=== PATIENT | male | born 1975 | race Caucasian/White ===

== ENCOUNTER 2022-06-08 15:37 | Emergency (ER) | payer BC, OTHER, SELFPAY ==
--- NOTE | 2022-06-08 15:40 | ED.URI ---
HPI - URI/Sore Throat General Chief Complaint: Upper Respiratory Infection Stated Complaint: sorethroat Time Seen by Provider: 06/08/22 15:40 Source: patient Mode of arrival: ambulatory Limitations: no limitations History of Present Illness HPI Narrative: Heber is a 46-year-old male patient presenting to the clinic today with complaints of a sore throat x3 days. He reports no fever or chills. Denies any runny nose, congestion, or headache. No known exposure to anybody with strep MD elicited complaint: sore throat and nasal congestion Related Data Allergies Allergy/AdvReac Type Severity Reaction Status Date / Time No Known Allergies Allergy Verified 06/08/22 16:01 Review of Systems Review of Systems: Pertinent positives per HPI. Patient denies any fever, chills, rash, headache, visual changes, dizziness, cough, shortness of breath, chest pain, palpitations, nausea, vomiting, diarrhea, constipation, abdominal pain, or any urinary issues. 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 There is no relevant family history pertinent to the patient complaint. Exam Narrative: General: Well-developed, well nourished, in no apparent distress Head: Normocephalic, atraumatic Eyes: Pupils equally round and reactive to light bilaterally, EOM intact, sclera and conjunctive clear, no discharge, lids normal Ears: TMs intact and clear, ear canals clear, no drainage, grossly hearing normal. Nose: Nares patent, no discharge, no inflammation, no sinus tenderness. Mouth: Oral pharynx without lesions or masses, good dentition, MMM. Oropharynx red with bilateral tonsillar enlargement Neck: Supple, trachea midline, enlargement of anterior cervical nodes, no thyroid masses or goiter palpable. Cardio: Regular rate and rhythm, s1 and s2 normal, no murmur appreciated. Resp: Clear to auscultation bilaterally, no rhonchi, rales, wheezing or rubs Course Course Emergency Course: Portions of this record may have been created with voice recognition software. Level of Care: Express Care Visit Vital Signs Vital signs: Vital Signs Temperature 36.2 C L 06/08/22 15:48 Pulse Rate 110 H 06/08/22 15:48 Respiratory Rate 18 06/08/22 15:48 Blood Pressure 140/84 06/08/22 15:48 Pulse Oximetry 98 06/08/22 15:48 Oxygen Delivery Room Air 06/08/22 15:48 Temperature 36.2 C L 06/08/22 15:48 Pulse Rate 110 H 06/08/22 15:48 Respiratory Rate 18 06/08/22 15:48 Blood Pressure 140/84 06/08/22 15:48 Pulse Oximetry 98 06/08/22 15:48 Oxygen Delivery Room Air 06/08/22 15:48 Vital signs reviewed MDM - URI/Sore Throat MDM Narrative Medical decision making narrative: At the time of visit patient is resting comfortably on the exam table. Strep screen was obtained and was negative in the clinic today. I suspect the patient has viral pharyngitis/right eustachian tube dysfunction. Prescription for prednisone was sent to
[2022-06-08 15:48] VITALS: BP 140/84; PULSE 110; RESP 18; TEMP 36.2; O2SAT 98
== END 2022-06-08 16:03 | disposition home or self-care (01) ==
LOC: EXPTROY 15:42
PROVIDERS: Emergency Provider Nurse Practitioner Family; PCP Family Medicine
DX: H69.91 Unspecified Eustachian tube disorder, right ear (principal); J02.9 Acute pharyngitis, unspecified; F17.200 Nicotine dependence, unspecified, uncomplicated; F12.90 Cannabis use, unspecified, uncomplicated
CPT/HCPCS: 87081; 87880; 99213; G0463

== ENCOUNTER 2022-07-17 12:30 | Outpatient (RCR) | payer BC, OTHER, SELFPAY ==
--- NOTE | 2022-06-13 16:30 | PTOPEVAL1 ---
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 Viola a pop walking was effected for a couple weeks. A few weeks later, was kicking ball around and did something like a mistep felt right knee slipping . Was initially sore, but had multiple other instances where knee would lock and he had ot manually manipulate knee to get to unlock. Each time was when was in bed and turnign from right sidelying to left sidelying Reported Pain Level Pain Score 0: Self Report Assessment PT Clinical Summary Pt presents with diagnosis of right knee pain. Pt reports will have painful times and knee will lock and be painful but is most concerned about the instability of his knee. Evalutaion demos significant ligament laxity medial collateral and lateral collateral ligaments with possible ACL tear or at least significant laxity when compared to left knee. Pt also demo's overall bilat LE instability with single leg balance testing. Thus patient will benefit from physical therapy in order to improve stability through neuromuscular reeducation, alignment, muscle activation patterns , and therapist assist in equipping with the appropriate durable medical equipment to support improvement and high level activities. Plan of Care Interventions Check Out for Orthotic/Pr,Electrical Stimulation, Hot Pack/Cold Pack,Manual Therapy,Neuro Re- education,Patient/Caregiver Educati,Therapeutic Activities,Therapeutic Exercise,Self-Care/Home Management,Ultrasound,Other Other Interventions Taping and bracing PT Services Indicated Yes Treatment Frequency and 1-2x weekly for 8 visits Duration These treatments will address the objective and functional deficits as defined above. The patient will be advanced safely and appropriately in order for the patient to progress towards his/her prior level of function. Additional exercises will be introduced and as well as a comprehensive home exercise program upon discharge, if needed, ?to ensure carryover of functional gains achieved in the clinic. This treatment plan has been reviewed and agreement upon by the patient.
--- NOTE | 2022-07-17 17:05 | PTOPDC ---
Assessment and note entered by Kathy Maddox, PT Assessment Status Discharge Diagnosis right knee pain Onset December 2021 Subjective Information Self-report of 50% improvement Pt reports feeling more confident, feels that is having less locking instances. Reported Pain Level Pain Score 0: Self Report Additional Pain Score Comments Pt is going on a high level hiking trip in December and worries about being able to accomplish this. Is more confident in being able to do this but isn't 100% in confident in this Also reports has not had to use hands to manipulate knee back into place with locking episodes. Assessment PT Clinical Summary Pt reports feeling 50% improved overall with less episodes of knee locking and episodes are less intense as well. Pt reports feeling more confident in abilities but not as confident as he would like being he is a highly active and young individual (appropriate activities for age and health). However being patient has only made 50% improvement, ligament laxity not tested as inert structure integrity will remain unchanged in such a short period, and pt has fully normalized strength in isolated testing, pt would like to further explore options related to knee laxity with orthopeadic consultation and possible imaging (which is appropriate at this time). Thus pt is being discharged from plan of care.
== END 2022-07-22 11:29 | disposition home or self-care (01) ==
LOC: ANHHIPT 12:30
PROVIDERS: PCP Family Medicine; Visit Provider Nurse Practitioner Family
DX: M25.561 Pain in right knee (principal)
CPT/HCPCS: 97110; 97112; 97116; 97161

== ENCOUNTER → 2022-10-23 10:52 | Outpatient (CLI) | payer BC, OTHER, SELFPAY ==
--- NOTE | ~2022-10-23 | MR_ITS ---
EXAMINATION: MR knee RT wo con DATE: 10/23/2022 11:41 INDICATION: Right knee pain and instability TECHNIQUE: Magnetic resonance imaging (MRI) of the affected knee was performed without intravenous co ntrast. Sequences included coronal PD-weighted FSE, coronal PD-weighted FS FSE, coronal fluid sensit rc FSE STIR, sagittal T2-weighted FSE, sagittal PD-weighted FS FSE, sagittal fluid sensitive FSE STI R, axial fluid sensitive FSE STIR and axial PD weighted fat saturated FSE. COMPARISON: None. FINDINGS: Medial compartment: The posterior horn of the medial meniscus is small in the medial meniscal body diminutive likely refl ecting changes of prior partial meniscectomy. Increased signal contacting the irregular margins of th e remaining tissue at the mid to lateral aspect of the posterior horn consistent with residual/recurr ent tearing. Cortical irregularity, mild underlying edema-like signal change at the site of a small d eep chondral ulceration at the central weightbearing medial femoral condyle. Small focus of mild suba rticular edema-like signal change at the medial side of the medial tibial plateau but without evident overlying chondral ulceration or fissuring suggesting this may be related to stress reaction from al tered weight distribution resulting from the partial meniscectomy. Lateral compartment: Longitudinal horizontal tear at the anterior horn of the lateral meniscus. Articular cartilage is nor mal. Patellofemoral compartment: Articular cartilage is normal. Ligaments and tendons: Intact appearing anterior cruciate ligament reconstruction likely from a patellar tendon autograft wi th chronic appearing harvest sites at the inferior pole of the patella and anterior tibial tuberosity either side of a sagittally oriented harvest site along the patellar tendon. The posterior cruciate ligament is normal. The medial collateral ligament and fibular collateral ligament complex are normal . Small enthesophytes and mild tendinopathy at the patellar insertion of the distal quadriceps tendon . The visualized medial and lateral hamstring tendons as well as the iliotibial band are normal. Fluid: Physiologic amount of fluid in the joint space. No loose osteochondral bodies identified. Osseous/other: Bone alignment is normal. No fracture or pathologic marrow replacing process. IMPRESSION: 1. Intact appearing anterior cruciate ligament reconstruction utilizing patellar tendon autograft. 2. Change of likely partial medial meniscectomy with residual/recurrent tearing along the margins of the remaining tissue at the lateral side of the posterior horn. 3. Longitudinal horizontal tear at the anterior horn of the lateral meniscus. 4. 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 Reviewed, dictated and finalized at location B. IMPRESSION: 1. Intact appearing anterior cruciate ligament reconstruction utilizing patella r tendon autograft. 2. Change of likely partial medial meniscectomy with residual/recurrent tearing along the margins of the remaining tissue at the lateral side of the posterior horn. 3. Longitudinal horizontal tear at the anterior horn of the lateral meniscus. 4. 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
== END ==
PROVIDERS: PCP Nurse Practitioner Family; Visit Provider Nurse Practitioner Family
DX: M23.51 Chronic instability of knee, right knee (principal); M25.561 Pain in right knee; S83.281A Other tear of lateral meniscus, current injury, right knee, initial encounter; M17.11 Unilateral primary osteoarthritis, right knee; M94.261 Chondromalacia, right knee
CPT/HCPCS: 73721

== ENCOUNTER 2023-03-10 11:00 | Outpatient (RCR) | payer BC, OTHER, SELFPAY ==
--- NOTE | 2022-12-25 17:38 | PTOPEVAL1 ---
Assessment and note entered by Kathy Maddox, PT Evaluation Information Assessment Status Evaluation Diagnosis ACL reconstruction Therapy Conditions weakness, gait abnormality, pain in right knee Onset 12/20/22 Subjective Information Does get sore when is up on it. But has had minimal pain overall. Currently on Meloxicam till around 12/29 or 12/30. Reported Pain Level Pain Score 2: Self Report Additional Pain Score Comments Hasn't needed to take the Percocet that has bee prescribed for home. Assessment PT Clinical Summary Pt presents 5 days post ACL revision of RLE with autograft vis quads tendon. Pt demos decreased ROM , gait abnormality, decreased functional strength RLE, swelling RLE and pain in RLE. Presentation appropriate for current phase of healing after surgical intervention. Pt was educated on multiple aspects of ACL plan of care today as documented above. 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 Plan of Care Interventions Check Out for Orthotic/Pr,Electrical Stimulation, Gait Training,Hot Pack/Cold Pack,Manual Therapy, Neuro Re-education,Patient/Caregiver Educati, Prosthetic Training,Therapeutic Activities, Therapeutic Exercise,Self-Care/Home Management PT Services Indicated Yes Treatment Frequency and 2x weekly x 12 weeks Duration These treatments will address the objective and functional deficits as defined above. The patient will be advanced safely and appropriately in order for the patient to progress towards his/her prior level of function. Additional exercises will be introduced and as well as a comprehensive home exercise program upon discharge, if needed, ?to ensure carryover of functional gains achieved in the clinic. This treatment plan has been reviewed and agreement upon by the patient.
--- NOTE | 2022-12-25 17:39 | OPREHPOC ---
Outpatient Therapy Plan of Care This is a Multidisciplinary Plan of Care that may contain components documented by all disciplines (PT, OT, and ST.) PT Problem 1 PT Problem #1 Knowledge Deficit PT Goal 1 Goal Pt will be independent in HEP Target Visit 24 PT Goal 2 Goal Pt will verbalize understanding of diagnosis and prognosis Target Visit 12 PT Problem 2 PT Problem #2 Impaired Range of Motion PT Goal 1 Goal Pt will demo 0-120 degrees passive ROM right knee Target Visit 12 PT Goal 2 Goal Pt will demo 0-120 degrees active ROM rigth knee Target Visit 24 PT Problem 3 PT Problem #3 Impaired Gait PT Goal 1 Goal Pt will demo ability to ambulate with knee brace only community distances Target Visit 12 PT Goal 2 Goal Pt will demo normalized gait pattern with or without kene brace as appropriate pending surgical protocol Target Visit 24 PT Problem 4 PT Problem #4 Impaired Strength PT Goal 1 Goal Pt will demo strong quads contraction in 0 degree extension Target Visit 12 PT Goal 2 Goal Pt will demo 5/5 (when resistance testing allowed) . Target Visit 24
--- NOTE | 2023-01-21 15:53 | PTOPPROG ---
Assessment and note entered by Kathy Maddox, PT Assessment Status Progress Diagnosis ACL reconstruction Onset 12/20/22 Subjective Information Pt woke up this morning with increased pain Assessment PT Clinical Summary Pt is progressing well with this therapy. Cont to demo extensor lag however has improve over therapy plan of care. ROM has greatly improved, gait has improved, pain has stayed low with the exception of last night and today in which pain went up to a 5/10 at worst located lateral knee, does not appear joint line related. No signs of infection prsent, mildly decreased scar mobility superior incision and lower incision. Pt will benefit from continued therapy to continue to improve strength, stability, and complete surgical protocol/plan of care to increase function and independence. Plan of Care Interventions Check Out for Orthotic/Pr,Electrical Stimulation, Gait Training,Hot Pack/Cold Pack,Manual Therapy, Neuro Re-education,Patient/Caregiver Educati, Prosthetic Training,Therapeutic Activities, Therapeutic Exercise,Self-Care/Home Management PT Services Indicated Yes Treatment Frequency and 2x weekly x 4 weeks Duration These treatments will address the objective and functional deficits as defined above. The patient will be advanced safely and appropriately in order for the patient to progress towards his/her prior level of function. Additional exercises will be introduced and as well as a comprehensive home exercise program upon discharge, if needed, ?to ensure carryover of functional gains achieved in the clinic. This treatment plan has been reviewed and agreement upon by the patient.
--- NOTE | 2023-03-11 16:29 | PTOPPROG ---
Assessment and note entered by Kathy Maddox, PT Assessment Status Progress Diagnosis ACL reconstruction Onset 12/20/22 Subjective Information Pt reports has done well since was last in therapy . Sometimes has a sharp little pain in the inside of the knee but not all the time. Has not returned to running or soccer related goals Assessment PT Clinical Summary Pt has attended therapy consistently for ACL reconstruction and is currently 11.5 weeks post-op . He returns to ortho next week. Demo's great improvement in mobility, ROM, strength, and functional ambulation. 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 Discussed with patient benefits of continuation of therapy at a reduced frequency pending doctor's approval to return to sport with guidance. Should patient and ortho decide this is appropriate, will continue patient strengthening and functional return to sprot within protocol. Plan of Care Interventions Check Out for Orthotic/Pr,Electrical Stimulation, Gait Training,Hot Pack/Cold Pack,Manual Therapy, Neuro Re-education,Patient/Caregiver Educati, Prosthetic Training,Therapeutic Activities, Therapeutic Exercise,Self-Care/Home Management PT Services Indicated Yes Treatment Frequency and 1x weekly x 8 weeks Duration These treatments will address the objective and functional deficits as defined above. The patient will be advanced safely and appropriately in order for the patient to progress towards his/her prior level of function. Additional exercises will be introduced and as well as a comprehensive home exercise program upon discharge, if needed, ?to ensure carryover of functional gains achieved in the clinic. This treatment plan has been reviewed and agreement upon by the patient.
--- NOTE | 2023-05-30 15:29 | PCPTNOTE ---
Admitting Provider: Attending Provider: Lasha Ho, Patient:Heber Segura Himsel Date of :1975 Patient has not returned for any further treatments since 03/10/2023 for sport specific training. Pt met his functional goals for ADLs and mobility and is happy with his progress. Thus we are discharging him from his current plan of care. Thank you for referring this patient to [facility]. Please review, sign, date and return this discharge summary CONRADO. I have been updated about the patient's current status and I agree with discharge from the above service at this time. Referring Physician Date
== END 2023-03-25 08:51 | disposition still patient (30) ==
LOC: ANHHIPT 11:00
PROVIDERS: PCP Nurse Practitioner Family; Visit Provider Orthopaedic Surgery Sports Medicine
DX: Z48.89 Encounter for other specified surgical aftercare (principal); M25.561 Pain in right knee; M23.51 Chronic instability of knee, right knee
CPT/HCPCS: 97014; 97110; 97112; 97116; 97140; 97161; 97530; 97750; G0283

== ENCOUNTER 2023-12-09 01:26 | Day surgery (SDC) | payer BC, OTHER, SELFPAY ==
[2023-11-19 10:16] VITALS: BMI 36.0
[2023-12-09 06:53] VITALS: BP 141/90; PULSE 87; RESP 18; TEMP 36.1; O2SAT 100
[2023-12-09] MEDS: LACTATED RINGERS 1,000 ML 150 ML IV CONT (07:03)
[2023-12-09 07:04] LABS: Glucose Point of Care 111 mg/dl (65-105)
--- NOTE | 2023-12-09 07:48 | WPDANESEPPF ---
Anes - Initial Pre Proc Eval Procedure: Operation Date: 12/09/23 08:00 Proposed Procedures p Screening Colonoscopy - Zachary Sherman DO Date/Time: 12/09/23 07:48 Surgeon: Zachary Sherman DO Pre Op Diagnosis: Screening for malignant neoplasm of colon Patient Data Age: 48 Gender: M Height: 1.78 m Weight: 110.8 kg Last Vital Signs Temp 97 F L 12/09/23 06:53 Pulse 87 12/09/23 06:53 Resp 18 12/09/23 06:53 BP 141/90 H 12/09/23 06:53 Pulse Ox 100 12/09/23 06:53 O2 Del Method Room Air 12/09/23 06:53 Allergies Allergy/AdvReac Type Severity Reaction Status Date / Time No Known Allergies Allergy Verified 12/09/23 06:50 Home Medications Medication Instructions Recorded Confirmed Type albuterol sulfate 90 mcg/actuation 2 puff inhalation .COMPLEX PRN 01/28/22 12/09/23 Rx aerosol inhaler bronchospasm #25 grams semaglutide 0.25 mg or 0.5 mg (2 0.5 mg (0.736 mL) subcut WEEKLY #3 10/07/23 12/09/23 Rx mg/3 mL) subcutaneous pen injector mL (Ozempic) losartan 100 mg tablet See Rx Instructions .Route 11/10/23 11/19/23 Rx .COMPLEX #30 tabs metformin 500 mg tablet,extended See Rx Instructions .Route 11/10/23 12/09/23 Rx release 24 hr .COMPLEX #60 tabs pravastatin 40 mg tablet See Rx Instructions .Route 11/10/23 12/09/23 Rx .COMPLEX #30 tabs Laboratory Tests 12/09/23 07:01 POC Capillary Glucose 111 H mg/dl (65-105) Patient hx anesthesia problems: none Family hx anesthesia problems: none Results Review: All pre-operative results and documents have been reviewed as part of the pre-operative evaluation. 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 [employer] Gender identity (if verbalized by the patient): Male Spiritual care concerns: No Agree to blood products: Yes Anes - Eval Final PreProcedure Day of Procedure 12/09/23 07:48 Patient weight: obese Heart: regular rate and rhythm Lungs: clear to auscultation Airway: Mallampati scale class II Neurological: alert and oriented Last oral intake: >/= 8 hours ASA classification: III Emergent: no Anesthetic plan: proceed Anesthesia type and monitoring: general GIVS and standard monitoring Results Review: All pre-operative results and documents have been reviewed as part of the pre-operative evaluation. Informed Consent: The patient's anesthetic plan and its attendant risks and benefits were discussed with the patient/family/POA. Questions were solicited and answers provided to the satisfaction of the patient/family/POA.
--- NOTE | 2023-12-09 07:52 | PM.IMHP ---
H&P: HPI History of Present Illness Date/Time: 12/09/23 07:52 Chief Complaint: screening for colorectal cancer Narrative: this is a 48-year-old man who presents for his 1st colonoscopy. He denies any hematochezia or melena. He denies family history of colon cancer. He did have 1 episode of a hemorrhoid about 6 months ago but has never had any other bowel issues. Review of Systems Review of Systems: All systems reviewed & are unremarkable except as noted in HPI and below Constitutional: Constitutional: Denies chills, Denies fever(s), Denies headache(s) and Denies weight loss Eyes: Eyes: Denies change in vision ENT: Denies dizziness, Denies headache(s), Denies neck mass and Denies throat swelling Cardiovascular: Cardiovascular: Denies chest pain, Denies lightheadedness and Denies dyspnea Respiratory: Respiratory: Denies cough, Denies dyspnea and Denies wheezing Gastrointestinal: Gastrointestinal: Denies abdominal pain, Denies change in bowel habits, Denies nausea and Denies vomiting Genitourinary: Genitourinary: Denies hematuria and Denies dysuria Musculoskeletal: Musculoskeletal: Reports as per HPI Integumentary/Breasts: Skin/Breast: Reports as per HPI Neurologic: Denies dizziness and Denies headache(s) Allergic/Immunologic: Allergic/Immunologic: Denies throat swelling and Denies wheezing PMFSH Surgical History Surgical History Oral cyst (2016) S/P ACL reconstruction (1999) Umbilical hernia (2005) Family History Family History Father Alcoholism Cancer Hypertension Intracranial hemorrhage Mother Depression Dementia Sibling Heart disease Other Asthma Social History Social History Smoking status: Never smoker Alcohol intake: current Drinks per week: 3 Alcohol use details: SOCIALLY, BEER/BOURBON Substance use: never Substance use type: does not use Living arrangements: with family Occupation/Education: occupation 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 [employer] Gender identity (if verbalized by the patient): Male Spiritual care concerns: No Agree to blood products: Yes Meds Home Medications and Allergies Home Medications Medication Instructions Recorded Confirmed Type albuterol sulfate 90 mcg/actuation 2 puff inhalation .COMPLEX PRN 01/28/22 12/09/23 Rx aerosol inhaler bronchospasm #25 grams semaglutide 0.25 mg or 0.5 mg (2 0.5 mg (0.736 mL) subcut WEEKLY #3 10/07/23 12/09/23 Rx mg/3 mL) subcutaneous pen injector mL (Ozempic) losartan 100 mg tablet See Rx Instructions .Route 11/10/23 11/19/23 Rx .COMPLEX #30 tabs metformin 500 mg tablet,extended See Rx Instructions .Route 11/10/23 12/09/23 Rx release 24 hr .COMPLEX #60 tabs pravastatin 40 mg tablet See Rx Instructions .Route 11/10/23 12/09/23 Rx .COMPLEX #30 tabs Allergies Allergy/AdvReac Type Severity Reaction Status Date / Time No Known Allergies Allergy Verified 12/09/23 06:50 Vital Signs Vital Signs - 24 hr 12/09/23 06:53 Temperature 36.1 C L Pulse Rate 87 Respiratory Rate 18 Blood Pressure 141/90 H Pulse Oximetry 100 Oxygen Delivery Room Air Exam Const: General: no acute distress and alert Orientation/consciousness: patient oriented x3 HENMT: Head: normocephalic and atraumatic Ears: hearing grossly normal bilaterally Face/Nose/Sinus: Normal nares present Mouth: Yes Normal oral and palatal mucosa present Eyes: Periorbital: periorbital findings normal Sclera: sclerae normal EOM: EOMs intact bilaterally Neck: Neck: normal visual inspection, no lymphadenopathy and trachea midline Chest: Chest palpation & inspection: normal inspection of the chest Resp: Effort & Inspection: normal respiratory effort Auscultation: clear to auscultation b
[2023-12-09 08:30] VITALS: BP 120/74; PULSE 74; RESP 16; O2SAT 97
[2023-12-09 08:40] VITALS: BP 112/78; PULSE 77; RESP 16; O2SAT 98
[2023-12-09 08:50] VITALS: BP 126/72; PULSE 70; RESP 16; O2SAT 98
== END 2023-12-09 08:50 | disposition home or self-care (01) ==
PROVIDERS: PCP Nurse Practitioner Family; Visit Provider Surgery
PROC: 0DJD8ZZ Inspection of Lower Intestinal Tract, Via Natural or Artificial Opening Endoscopic (ICD-10-PCS; CPT 45378; principal; 2023-12-09 08:00)
DX: Z12.11 Encounter for screening for malignant neoplasm of colon (principal); K57.30 Diverticulosis of large intestine without perforation or abscess without bleeding; E66.9 Obesity, unspecified; Z68.35 Body mass index [BMI] 35.0-35.9, adult; Z79.51 Long term (current) use of inhaled steroids; Z79.84 Long term (current) use of oral hypoglycemic drugs; Z79.85 Long-term (current) use of injectable non-insulin antidiabetic drugs; Z98.890 Other specified postprocedural states; Z80.9 Family history of malignant neoplasm, unspecified; Z82.49 Family history of ischemic heart disease and other diseases of the circulatory system
CPT/HCPCS: 45378; 82948; J2704; J7120